=== PATIENT | male | born 1950 | race Caucasian/White ===

== ENCOUNTER → 2018-11-13 | Outpatient (CLI) | payer OTHER | LOC: FIMAGING 16:51 | PROVIDERS: ATTEND Internal Medicine Pulmonary Disease | DX: J98.4 Other disorders of lung (principal) ==

== ENCOUNTER → 2018-11-20 | Outpatient (CLI) | payer OTHER | LOC: FIMAGING 12:58 ==

== ENCOUNTER 2018-12-19 10:44 | Day surgery (SDC) | payer OTHER | END 2018-12-19 13:50 | disposition home or self-care (01) | LOC: FSGY 10:44 ==